=== PATIENT | female | born 1945 | race Caucasian/White ===

== ENCOUNTER 2024-05-17 23:44 | Emergency (ER) | payer MEDICARE, SELFPAY ==
[2024-05-17 23:47] VITALS: BP 133/63; PULSE 60; O2SAT 98
[2024-05-17 23:51] VITALS: BP 133/63; PULSE 63; RESP 18; TEMP 36.8; O2SAT 97; BMI 27.3
[2024-05-18] VITALS (20 sets, daily range): BP systolic 84–169; BP diastolic 45–88; PULSE 58–76; RESP 18–40; O2SAT 95–100
--- NOTE | 2024-05-18 00:23 | ED_ITS ---
HPI - Fall General Chief Complaint: Fall Stated Complaint: fall down stairs Time Seen by Provider: 05/18/24 00:23 Source: EMS Mode of arrival: EMS History of Present Illness HPI Narrative: Patient is an 79-year-old female not on anticoagulation presenting today with right knee pain. She reports that she fell down some stairs unclear if she hit her head no obvious head trauma. She traveled on an airplane from [place] today staying at a friend's house for the holiday has a large laceration over her right knee. She does admit to drinking a glass of wine he is slightly confused. Unclear how many stairs she actually fell down. Denies any other pain or injury Related Data Previous Rx's Medication Instructions Recorded cephalexin 500 mg capsule 500 mg PO TID #21 caps 05/18/24 hydrocodone 5 mg-acetaminophen 325 1 tab PO Q6H PRN pain #10 tabs 05/18/24 mg tablet Allergies Allergy/AdvReac Type Severity Reaction Status Date / Time No Known Drug Allergies Allergy Verified 05/18/24 02:38 Patient History Social History Smoking Status: Former smoker Smoking Status: Former smoker Alcohol type: wine Exam Initial Vital Signs Initial Vital Signs: Vital Signs Pulse Rate 60 05/17/24 23:47 Blood Pressure 133/63 05/17/24 23:47 Pulse Oximetry 98 05/17/24 23:47 GENERAL: Alert 79-year-old female able to follow commands and answer questions but seems confused and in no acute distress. HEENT: Head atraumatic,EOMI, pupils reactive, face symmetric, moist mucous membranes CARDIOVASCULAR: Regular rate and rhythm without murmurs, rubs or gallops. RESPIRATORY: Breath sounds equal bilaterally, no wheezes rales or rhonchi. ABDOMEN: Soft, nontender. Normoactive bowel sounds all 4 quadrants. No guarding or rebound. EXTREMITIES: Normal range of motion, no clubbing or edema. Neurovascularly intact Pelvis stable right lower extremity distal pedal pulse intact able to flex and extend right knee large laceration 14 cm across patella but no bone or joint space identified. NEUROLOGICAL: Alert and oriented x3.Normal gait and speech. Cranial nerves II through XII grossly intact. 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 Procedures Laceration Repair Laceration 1: Site: lower extremity Side (If applicable): right Size (cm): 14 Description: linear Depth: simple, single layer Local Anesthetic: lidocaine 1% and with epi Amount of anesthesia used (mL): 20 Pre-repair: wound explored, irrigated extensively and deep structures intact Skin layer closed with: nylon Skin layer suture size: 4-0 Number of sutures: 14 Technique: simple, interrupted (13) and horizontal mattress (1) Subcutaneous layer closed with: vicryl Subcutaneous layer suture size: 3-0 Number of sutures: 5 Technique: simple, interrupted (4) and other (Horizontal mattress x1) Course Orders Ordered: Discontinued Medications Cefazolin Sodium 1 gm/ Sodium (Chloride) 100 mls @ 200 mls/hr IV NOW ONE Stop: 05/18/24 03:32 Last Infusion: 05/18/24 03:41 Dose: Infused Documented By: Admin: 05/18/24 03:06 Dose: 200 mls/hr Documented By: Lidocaine/Epinephrine (Lidocaine 2% W/Epi Inj 10 Ml Vial) 10 ml INJ NOW ONE Stop: 05/18/24 02:37 Last Admin: 05/18/24 03:12 Dose: Not Given Documented By: Lidocaine/Epinephrine (Lidocaine 1% W/Epi 20ml) 4 ml INJ INTRA-OP ONE Stop: 05/18/24 02:41 Last Admin: 05/18/24 03:12 Dose: 4 ml Documented By: Morphine Sulfate (Morphine 2 Mg/Ml Inj) 2 mg IV NOW ONE Stop: 05/18/24 02:59 Last Admin: 05/18/24 03:04 Dose: 2 mg Documented By: Ondansetron HCl (Ondansetron 4 Mg Odt) 4 mg SL NOW ONE Stop: 05/18/24 06:46 Last Admin: 05/18/24 06:47 Dose: 4 mg Documented By: DAMIR Ondansetron HCl (Ondansetron 4 Mg Odt Prepack) 1 bottle MISC DIRECTED ONE Stop: 05/18/24 06:47 Last Admin: 05/18/24 06:50 Dose: 1 bottle Documented By: DAMIR Vital Signs Vital signs: Vital Signs - 8 hr 05/17/24 23:47 05/17/24 23:47 05/17/24 23:51 Temperature 98.2 F Pulse Rate 60 63 Respiratory Rate 18 Blood Pressure 133/63 133/63 Pulse Oximetry 98 97 Oxygen Delivery Method Room Air 05/18/24 00:00 05/18/24 00:00 05/18/24 00:30 Temperature Pulse Rate 61 Respiratory Rate 19 Blood Pressure 106/54 L 114/59 L Pulse Oximetry 95 Oxygen Delivery Method 05/18/24 00:30 05/18/24 00:49 05/18/24 00:49 Temperature Pulse Rate 59 L 63 Respiratory Rate 29 H 23 Blood Pressure 134/61 Pulse Oximetry 96 98 Oxygen Delivery Method 05/18/24 01:00 05/18/24 01:00 05/18/24 01:30 Temperature Pulse Rate 71 73 Respiratory Rate 30 H 40 H Blood Pressure 130/61 Pulse Oximetry 97 98 Oxygen Delivery Method 05/18/24 01:33 05/18/24 01:33 05/18/24 02:00 Temperature Pulse Rate 64 71 Respiratory Rate 22 26 H Blood Pressure 134/63 Pulse Oximetry 98 98 Oxygen Delivery Method 05/18/24 02:01 05/18/24 02:01 05/18/24 02:30 Temperature Pulse Rate 71 76 Respiratory Rate 21 28 H Blood Pressure 169/68 H Pulse Oximetry 98 98 Oxygen Delivery Method 05/18/24 02:31 05/18/24 02:31 05/18/24 03:00 Temperature Pulse Rate 76 Respiratory Rate 21 Blood Pressure 148/71 H 117/58 L Pulse Oximetry 98 Oxygen Delivery Method Room Air 05/18/24 03:00 05/18/24 03:30 05/18/24 03:31 Temperature Pulse Rate 68 62 Respiratory Rate 20 29 H Blood Pressure 84/45 L Pulse Oximetry 99 98 Oxygen Delivery Method Room Air 05/18/24 03:31 05/18/24 04:00 05/18/24 04:00 Temperature Pulse Rate 62 73 Respiratory Rate 28 H 24 Blood Pressure 132/60 Pulse Oximetry 98 96 Oxygen Delivery Method 05/18/24 04:30 05/18/24 04:30 05/18/24 05:00 Temperature Pulse Rate 61 Respiratory Rate 34 H Blood Pressure 126/58 L 112/53 L Pulse Oximetry 99 Oxygen Delivery Method Room Air 05/18/24 05:00 05/18/24 05:30 05/18/24 05:31 Temperature Pulse Rate 59 L 62 Respiratory Rate 18 18 Blood Pressure 151/66 H Pulse Oximetry 99 100 Oxygen Delivery Method 05/18/24 05:32 05/18/24 05:32 05/18/24 06:00 Temperature Pulse Rate 58 L Respiratory Rate 20 Blood Pressure 139/65 118/88 Pulse Oximetry 99 Oxygen Delivery Method 05/18/24 06:00 Temperature Pulse Rate 68 Respiratory Rate 18 Blood Pressure Pulse Oximetry 99 Oxygen Delivery Method - Fall Lab Data 05/17/24 23:45 05/17/24 23:45 Labs: Lab Results 05/17/24 Range/Units 23:45 WBC 6.5 (4.5-11.0) X10^3/uL RBC 3.74 L (4.0-5.2) X10^6/uL Hgb 12.2 (12.0-16.0) g/dL Hct 36.9 (36-46) % MCV 98.8 (80-100) fL MCH 32.6 (26-34) PG MCHC 32.9 (30-36) % RDW 14.0 (11.6-14.8) % Plt Count 353 (150-400) X10^3/uL Neut % (Auto) 54.4 (50-75) % Lymph % (Auto) 30.8 (25-40) % [place]mort[place] % (Auto) 9.1 (3-14) % Eos % (Auto) 2.9 (2-4) % Baso % (Auto) 2.8 H (0-2) % Neut # (Auto) 3500 (9292-0427) /uL Lymph # (Auto) 2000 (8062-4362) /uL [place]mort[place] # (Auto) 600 (0-900) /uL Eos # (Auto) 200 (0-450) /uL Baso # (Auto) 200 H (0-100) /uL Sodium 139 (137-145) mmol/L Potassium 4.5 (3.4-5.1) mmol/L Chloride 110 H (98-107) mmol/L Carbon Dioxide 19 L (22-32) mmol/L BUN 30 H (7-17) mg/dL Creatinine 1.05 H (0.52-1.04) mg/dL Estimated GFR 54 L (>60) mL/min BUN/Creatinine Ratio 28.6 H (6-22) Glucose 90 (80-110) mg/dL Calcium 9.3 (8.4-10.2) mg/dL Total Bilirubin 0.3 (0.2-1.3) mg/dL AST 38 H (14-36) IU/L ALT 31 (<35) IU/L Alkaline Phosphatase 82 (38-126) U/L Total Protein 6.9 (6.3-8.2) g/dL Albumin 4.4 (3.5-5.0) g/dL Globulin 2.5 (1.7-4.1) g/dL Albumin/Globulin Ratio 1.8 (1.0-2.8) Ethyl Alcohol 73 H ( - 10) mg/dL Imaging Data CT scan - head: Radiologist's Impression: PROCEDURE: CT HEAD/BRAIN WO CON INDICATIONS: fall TECHNIQUE: Noncontrast 4.5 mm thick angled axial sections acquired from the foramen magnum to the vertex, with coronal and sagittal reformats. For radiation dose reduction, the following was used: automated exposure control, adjustment of mA and/or kV according to patient size. COMPARISON: None. FINDINGS: Image quality: Diagnostic CSF spaces: Basal cisterns are patent. Lateral ventricles are symmetric. Volume: Vascular calcifications. Periventricular white matter disease is commonly seen with chronic microangiopathy. Volume loss is present. These findings are moderate Brain: No intracranial hemorrhage. Blas-white differentiation is grossly maintained. Craniofacial structures: No significant paranasal sinus opacity IMPRESSION: No acute intracranial pathology. Dictated by: Owen Ramirez M.D. on 05/18/2024 at 0:51 Extremity x-ray #1: Radiologist's Impression: PROCEDURE: XR KNEE RT 1TO2V INDICATIONS: laceration TECHNIQUE: 2 views of the knee were acquired. COMPARISON: None. FINDINGS: Bones: Moderate knee arthrosis especially with joint space narrowing in the lateral compartment. No acute displaced fracture is seen. Soft tissues: Moderate peripatellar edema small joint effusion. Subcutaneous emphysema. IMPRESSION: Moderate arthrosis especially in the lateral compartment. No acute displaced fracture or dislocation. Peripatellar edema, subcutaneous emphysema, and joint effusion. If there is high concern for occult injury, consider repeat radiography or cross-sectional imaging. Dictated by: Owen Ramirez M.D. on 05/18/2024 at 2:04 MDM Narrative Medical decision making narrative: MDM CC: Right leg laceration and fall Complicating co-morbidities: [ ] Corroborating data: [ ] Data collected from: EMS Medical records reviewed: None Differential considered: Intoxication metabolic encephalopathy sepsis Exam documented above, pertinent findings include: Patient does wake sits up moving all extremities she has a large 14 cm laceration over right knee. Good distal pedal pulse seems mildly confused no other significant injuries Lab Test results independently reviewed as above. Pertinent findings: WBC 6.5 hemoglobin 12.2 hematocrit 36.9 platelets 353 Sodium 139 potassium 4.5 chloride 110 bicarb 19 BUN 30 creatinine 1.5 glucose 90 ETOH 73 Independently reviewed EKG as above Imaging studies independently reviewed: Head CT no acute intracranial process X-ray right knee no fracture Treatments: Morphine, Ancef Re-evaluations: [ ] Discussion: He year old female presenting today with fall downstairs. She has a large 14 cm laceration across her right knee. It does not go into the joint but there is quite a lot of adipose tissue exposed. It was irrigated with 250 cc normal saline and closed. She is placed in a knee immobilizer. Imaging is otherwise negative. She did seem confused but is having a hard time getting comfortable she is mostly redirectable. No obvious sign of infection. Electrolytes slightly to mild dehydration noted. Discharge Plan Departure Patient Disposition: Home Clinical Impression: Laceration of knee, right Instructions: DI for Laceration Repair -- Complex Activity Restrictions/Additional Instructions: *You have been diagnosed with right knee laceration *What to do: At this time you had a very large laceration over her right knee. X-rays were negative. You 14 sutures. Please have them removed forearm about 10-14 days. This can be done by your primary care provider. Wash and bathe as normal keep clean and dry with soap and water. I do recommend some topical antibiotic ointment Keep knee immobilizer and will active and probably will sleeping to prevent laceration from opening *Continue to take medications as directed Keflex 500 mg twice a day for 7 days Marion 1 tablet every 6 hours if needed for severe pain Tylenol 650 mg every 6 hours for ddff-cl-hyitgxne pain Zofran 4 mg every 8 hours if needed for nausea or vomiting (you got a prepack here in the ED not a prescription) *Follow up with your primary care provider in 2-3 days or call [phone] *Return to ER if you should have increasing redness swelling inability to bear weight increasing knee pain fever chills or any new, worsening or concerning symptoms CONTROLLED SUBSTANCE DISCHARGE (Narcotoic/benzodiazepine/Flexeril/Phenergan) 1. You have been prescribed narcotic medications, it does have acetaminophen/Tylenol/paracetamol in it, DO NOT TAKE MORE THAN 4,00mg in 24 hours of Tylenol. TRAMADOL DOES NOT CONTAIN TYLENOL 2. Please understand that we cannot provide further refills of narcotics, benzodiazepines or controlled substances through the ED and her pain management will need to be through your provider. 3. While on these medications you cannot drive or operate heavy machinery. 4. You cannot sign legal documents or perform any duties such as this. 5. As long as you're taking opiate pain medications he should also be taking a stool softener such as Colace, Dulcolax, MiraLAX or prune juice, to help avoid constipation. Prescriptions: New hydrocodone-acetaminophen 5-325 mg tablet 1 tab PO Q6H PRN (Reason: pain) Qty: 10 0RF cephalexin 500 mg capsule 500 mg PO TID Qty: 21 0RF Stand Alone Forms: Patient Portal/API/Survey
--- NOTE | 2024-05-18 00:27 | DI.CT.S_ITS ---
PROCEDURE: CT HEAD/BRAIN WO CON INDICATIONS: fall TECHNIQUE: Noncontrast 4.5 mm thick angled axial sections acquired from the foramen magnum to the vertex, with coronal and sagittal reformats. For radiation dose reduction, the following was used: automated exposure control, adjustment of mA and/or kV according to patient size. COMPARISON: None. FINDINGS: Image quality: Diagnostic CSF spaces: Basal cisterns are patent. Lateral ventricles are symmetric. Volume: Vascular calcifications. Periventricular white matter disease is commonly seen with chronic microangiopathy. Volume loss is present. These findings are moderate Brain: No intracranial hemorrhage. Blas-white differentiation is grossly maintained. Craniofacial structures: No significant paranasal sinus opacity IMPRESSION: No acute intracranial pathology. Dictated by: Owen Ramirez M.D. on 05/18/2024 at 0:51 Approved by: Owen Ramirez M.D. on 05/18/2024 at 0:52
--- NOTE | 2024-05-18 00:51 | PC.NURSE ---
Pure wick placed
--- NOTE | 2024-05-18 01:01 | PC.NURSE ---
Pt repeatedly sits up and whimpers then lays back down with eyes clsoed. When asked pt states I'm just in pain!. Asked pt where pain was, pt states I'm old, I'm in pain everywhere! Pt requests to just get up. Asked patient what would feel better if she were to get up and she reply's I don't know. Explained to patient that she falls asleep quickly and at the moment I'm not comfortable getting her up to ambulate.
--- NOTE | 2024-05-18 01:44 | DI.RAD.S_ITS ---
PROCEDURE: XR KNEE RT 1TO2V INDICATIONS: laceration TECHNIQUE: 2 views of the knee were acquired. COMPARISON: None. FINDINGS: Bones: Moderate knee arthrosis especially with joint space narrowing in the lateral compartment. No acute displaced fracture is seen. Soft tissues: Moderate peripatellar edema small joint effusion. Subcutaneous emphysema. IMPRESSION: Moderate arthrosis especially in the lateral compartment. No acute displaced fracture or dislocation. Peripatellar edema, subcutaneous emphysema, and joint effusion. If there is high concern for occult injury, consider repeat radiography or cross-sectional imaging. Dictated by: Owen Ramirez M.D. on 05/18/2024 at 2:04 Approved by: Owen Ramirez M.D. on 05/18/2024 at 2:05
--- NOTE | 2024-05-18 02:16 | PC.NURSE ---
Pt restless and tearful. When asked she states I just want to get up. I just want to go. Asked if anything else was worrying or bothering and pt states No. Pt states I always squirm and I don't sleep.
[2024-05-18 02:41] LABS: Add Manual Diff / Slide Review NO; Basophils Absolute Auto 200 /uL (0-100); Basophils Percent Auto 2.8 % (0-2); Eosinophils Absolute Auto 200 /uL (0-450); Eosinophils Percent Auto 2.9 % (2-4); Hematocrit 36.9 % (36-46); Hemoglobin 12.2 g/dL (12.0-16.0); Lymphocytes Absolute Auto 2000 /uL (1100-4500); Lymphocytes Percent Auto 30.8 % (25-40); Mean Corpuscular HGB Conc 32.9 % (30-36); Mean Corpuscular Hemoglobin 32.6 PG (26-34); Mean Corpuscular Volume 98.8 fL (80-100); Monocytes Absolute Auto 600 /uL (0-900); Monocytes Percent Auto 9.1 % (3-14); Neutrophils Absolute Auto 3500 /uL (1500-7000); Neutrophils Percent Auto 54.4 % (50-75); Platelet Count 353 X10^3/uL (150-400); Red Blood Cell Count 3.74 X10^6/uL (4.0-5.2); White Blood Cell Count 6.5 X10^3/uL (4.5-11.0)
[2024-05-18 02:45] LABS: Ethanol (ETOH) 73 mg/dL
[2024-05-18 02:46] LABS: Alanine Aminotransferase 31 IU/L (<35); Albumin 4.4 g/dL (3.5-5.0); Albumin Globulin Ratio 1.8 (1.0-2.8); Alkaline Phosphatase 82 U/L (38-126); Aspartate Aminotransferase 38 IU/L (14-36); BUN Creatinine Ratio 28.6 (6-22); Bilirubin Total 0.3 mg/dL (0.2-1.3); Blood Urea Nitrogen 30 mg/dL (7-17); Calcium 9.3 mg/dL (8.4-10.2); Carbon Dioxide 19 mmol/L (22-32); Chloride 110 mmol/L (98-107); Estimated Glomerular Filt Rate 54 mL/min (>60); Globulin 2.5 g/dL (1.7-4.1); Glucose 90 mg/dL (80-110); HEMOLYSIS 19 (0-50); Potassium 4.5 mmol/L (3.4-5.1); Sodium 139 mmol/L (137-145); Total Protein 6.9 g/dL (6.3-8.2)
[2024-05-18] MEDS: MORPHINE 2 MG/ML INJ IV (03:04)
[2024-05-18] MEDS: CEFAZOLIN VIAL 1 GM in SODIUM CHLORIDE 0.9% 100 ML IV (03:06)
[2024-05-18] MEDS: LIDOCAINE 1% W/EPI 20ML 4 ML INJ (03:12)
--- NOTE | 2024-05-18 03:33 | PC.NURSE ---
Dr. Elizalde aware of current vital signs. No new orders rcv'd at this time.
--- NOTE | 2024-05-18 06:27 | PC.NURSE ---
Laceration cleaned and dressed with Xeroform, wrapped with Kerlex. Knee immobilizer applied. Pt ambulatory with assistance.
--- NOTE | 2024-05-18 06:37 | PC.NURSE ---
Friend- Sabrina- at bedside
[2024-05-18] MEDS: ONDANSETRON 4 MG ODT SL (06:47)
[2024-05-18] MEDS: ONDANSETRON 4 MG ODT PREPACK 1 BOTTLE MISC (06:50)
== END 2024-05-18 06:55 | disposition home or self-care (01) ==
PROVIDERS: Emergency Provider Emergency Medicine
DX: S81.011A Laceration without foreign body, right knee, initial encounter (principal); W10.9XXA Fall (on) (from) unspecified stairs and steps, initial encounter; R41.0 Disorientation, unspecified
CPT/HCPCS: 12035; 70450; 73560; 80053; 80320; 85025; 96365; 96375; 99284; J0690; J2270

== ENCOUNTER → 2024-05-19 14:17 | Outpatient (CLI) | payer MEDICARE, SELFPAY ==
--- NOTE | 2024-05-19 14:18 | DI.RAD.S_ITS ---
PROCEDURE: XR HAND LT MIN 3V INDICATIONS: Left hand pain TECHNIQUE: 3 views of the hand(s) acquired. COMPARISON: None. FINDINGS: Bones: No fractures or dislocations. Osteoarthritic changes are noted throughout left hand and wrist joints most notably involving 1st CMC joint. Carpal bones are normally aligned. No suspicious bony lesions. Soft tissues: Chondrocalcinosis is noted in the region of triangular fibrocartilage. 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 No acute fracture or dislocation. Dictated by: Patrick Rouse M.D. on 05/19/2024 at 14:35 Approved by: Patrick Rouse M.D. on 05/19/2024 at 14:38
== END ==
LOC: RAD 14:18
PROVIDERS: Referring Provider Nurse Practitioner Family; Visit Provider Nurse Practitioner Family
DX: S60.229A Contusion of unspecified hand, initial encounter (principal); M19.042 Primary osteoarthritis, left hand; M19.032 Primary osteoarthritis, left wrist; M18.12 Unilateral primary osteoarthritis of first carpometacarpal joint, left hand; M11.232 Other chondrocalcinosis, left wrist; X58.XXXA Exposure to other specified factors, initial encounter
CPT/HCPCS: 73130